=== PATIENT | female | born 1940 | race Caucasian/White ===

== ENCOUNTER 2021-02-09 02:42 | Outpatient (CLI) | payer MEDICARE, MEDICAID, SELFPAY ==
[2021-02-09 12:00] LABS: Source Nasal/Nares
[2021-02-09 15:27] LABS: COVID-19 PCR Negative (Negative)
== END 2021-02-09 02:43 | disposition home or self-care (01) ==
PROVIDERS: Visit Provider Ophthalmology
DX: Z20.822 Contact with and (suspected) exposure to COVID-19 (principal); Z01.818 Encounter for other preprocedural examination
CPT/HCPCS: 87635

== ENCOUNTER 2021-02-12 07:51 | Day surgery (SDC) | payer MEDICARE, MEDICAID, SELFPAY ==
[2021-02-12 08:44] VITALS: BP 200/86; PULSE 61; RESP 16; TEMP 36.4; O2SAT 100
[2021-02-12] MEDS: Tropicam./Phenyleph. (1/2.5%) 5 ML BTL OD ×3 (08:55→09:09)
--- NOTE | 2021-02-12 08:56 | W.ANESPRE ---
General Info Date of Service Date Performed: 02/12/21 Height: 5 ft 6 in Weight: 58.8 kg Body Mass Index (BMI): 20.9 Surgical Procedure: Operation Date: 02/12/21 10:40 Proposed Procedures Side Surgeon p Cataract Extraction with IOL Implant Right Jose Hudson MD Meds Allergies and Home Medications Allergies Allergy/AdvReac Type Severity Reaction Status Date / Time No Known Allergies Allergy Verified 02/12/21 08:41 Home Medication Medication Instructions Recorded acetaminophen [Mapap Arthritis 1,300 mg PO Q8H PRN 02/08/21 Pain] aspirin 81 mg PO DAILY 02/08/21 calcium carb and citrate-vitD3 1 tab PO DAILY 02/08/21 ferrous sulfate [FeroSul] 325 mg PO DAILY 02/08/21 metoprolol succinate 150 mg PO DAILY 02/08/21 pantoprazole 40 mg PO DAILY 02/08/21 Current Visit Medications: Current Medications Generic Name Dose Route Start Last Admin Trade Name Freq PRN Reason Stop Dose Admin Acetaminophen 1,000 mg 02/12/21 06:00 Acetaminophen 500 Mg Tab PO Q4H PRN PRN Miscellaneous Medication 0 ml 02/12/21 06:00 Prednisolone 1%, Moxifloxacin 0.5%, Nepafenac 0.1% 5ml Btl OD DIRECTED FARRAH Miscellaneous Medication 0 ml 02/12/21 06:00 02/12/21 08:55 Tropicam./Phenyleph. (1/2.5%) 5 Ml Btl OD 1 drp DIRECTED FARRAH Administration Tetracaine HCl 0 ml 02/12/21 06:00 Tetracaine 0.5% 4 Ml Btl OD DIRECTED FARRAH PFSH Active Problems Active Problems: Problem Status Onset Code Posterior subcapsular age-related cataract, right eye H25.041 Cortical cataract of right eye H26.9 Nuclear sclerotic cataract of right eye H25.11 Medical History Active Problem List Posterior subcapsular age-related cataract, right eye (Acute) Cortical cataract of right eye (Acute) Nuclear sclerotic cataract of right eye (Acute) Medical History Aortic stenosis, severe s/p TAVR 09/2019 Arthritis Essential hypertension Hip fracture, right History of left bundle branch block (LBBB) PER [facility] NOTE: LBBB INTERMITTENT, SINUS 90-100, NO INCREASE IN QRS DOLLOWING TAVR FROME BASELINE HLD (hyperlipidemia) NSTEMI (non-ST elevated myocardial infarction) 09/14/2019 @[facility] F/U WITH DR. CARVAJAL. LAST ECHO 09/2020 EF 61%, mild TR, mild biatrial enlargement PER [facility] NOTE. Osteoporosis Postoperative anemia due to acute blood loss Syncope 04/2017 in the etting of dehydration Upper GI bleed Weight loss Surgical History Surgical History H/O cardiac catheterization 09/17/19 R/T nstemi ON 09/14/19 History of hip replacement S/P XIMENA (total abdominal hysterectomy) S/P TAVR (transcatheter aortic valve replacement) Tobacco Smoking/Tobacco Use Status: Never Alcohol Alcohol Intake: never Substance Use Substance use: Never Substance use type: does not use Vital Signs and Lab Results Vital Signs Most Recent Vital Signs in EMR: Most Recent Vital Signs Temp Pulse Resp BP Pulse Ox 36.4 C L 61 16 200/86 H 100 02/12/21 08:44 02/12/21 08:44 02/12/21 08:44 02/12/21 08:44 02/12/21 08:44 Lab Results Blood Type / Crossmatch: No Data to Display Complete Blood Count: No Data to Display Complete Metabolic Panel: No Data to Display Liver Function Panel: No Data to Display Coagulation Panel: No Data to Display Cardiac Panel: No Data to Display Arterial Blood Gas: No Data to Display Venous Blood Gas: No Data to Display Pancreas Panel: No Data to Display Thyroid Panel: No Data to Display Infectious Disease: Coronavirus (COVID-19)(PCR) Negative (Negative) 02/09/21 10:58 02/09/21 Coronavirus 2019 Source Nasal/Nares 02/09/21 10:58 02/09/21 Blood Cultures: No Data to Display Toxicology Panel: No Data to Display Anesthesia Assessment and Plan Anesthesia History Personal History: No History of Anesthesia Complications Family History: No Family History of Anesthesia Complications Exercise Tolerance Exercise Tolerance: Metabolic Equivalents>4 Pertinent Negatives Pertinent Negatives: No Symptoms of GERD Cardiac & Pulmonary Exam Cardiac Exam: Normal S1/S2 Heart Sounds Pulmonary Exam: Clear Bilateral Breath Sounds Implantable Cardiac Device Does patient have a Pacemaker or an ICD?: No Airway Exam Known Difficult Airway: No Mallampati Class: 3 Mouth Opening: Narrow (< 3cm) Thyromental Distance: Greater than 3 cm Neck Range of Motion: Full ROM Neck Circumference: Normal Teeth Condition: Removable Dentures/Plates Upper and Removable Dentures/Plates Lower ASA Classification ASA Score: ASA 3 Emergency Case?: No NPO Status NPO Status: NPO Clears >2 hours, Solids >8 hours Anesthesia Plan Resuscitation Status: Full Code Anesthesia Technique: MAC Anesthesia Airway Planned: Natural Airway Monitors Used: Standard Monitors
[2021-02-12 09:18] VITALS: BMI 20.9
[2021-02-12] MEDS: Povidone-Iodine Ophth 30 ML BTL (09:34)
[2021-02-12] MEDS: Tetracaine 0.5% 4 ML BTL OD (09:34)
[2021-02-12] MEDS: Lidocaine 2% Jelly 6 ML SYR (09:35)
[2021-02-12] MEDS: Balanced Salt Soln.-PLUS 500 ML BAG (09:49)
[2021-02-12] MEDS: Duovisc Viscoelastic System EACH 1 EACH (09:50)
[2021-02-12 10:05] VITALS: BP 191/77; PULSE 63; RESP 16; TEMP 36.6; O2SAT 100
--- NOTE | 2021-02-12 10:06 | W.PM.DSUDISC ---
Discharge Plan Disposition Patient Disposition: HOME Condition: Good Discharge Details Attending Provider: Jose Hudson Primary Care Provider: Jackie Barron Home Meds and New Rx's Prescriptions: No Action metoprolol succinate 50 mg tablet extended release 24 hr 150 mg PO DAILY RF: 0 acetaminophen [Mapap Arthritis Pain] 650 mg tablet extended release 1,300 mg PO Q8H PRNRF: 0 pantoprazole 40 mg tablet,delayed release (DR/EC) 40 mg PO DAILY RF: 0 ferrous sulfate [FeroSul] 325 mg (65 mg iron) tablet 325 mg PO DAILY RF: 0 aspirin 81 mg tablet,chewable 81 mg PO DAILY RF: 0 calcium carb and citrate-vitD3 600 mg-12.5 mcg (500 unit) Tablet Extended Release 1 tab PO DAILY RF: 0 Discharge Instructions Stand Alone Forms: Post-op Topical Cataract, Gary Guzmaney (DSU) Discharge Orders Discharge Orders: Discharge Order (Routine); Ordered 02/12/21 Ordered By: Jose Hudson DS: Diagnosis Discharge Diagnosis (1) Nuclear sclerotic cataract of right eye: Status: Resolved (2) Cortical cataract of right eye: Status: Resolved (3) Posterior subcapsular age-related cataract, right eye: Status: Resolved
--- NOTE | 2021-02-12 10:07 | ROE_ITS ---
Date of service: 02/12/21 Time of Service: 10:07 Operative Note Operative Note DATE OF PROCEDURE: 02/12/21 PRE-OP DIAGNOSIS: Nuclear/cortical/posterior subcapsular cataract, right eye POST-OP DIAGNOSIS: same PROCEDURE: Cataract extraction using phacoemulsification with intraocular lens implant, right eye SURGEON: Jose Hudson ANESTHESIA TYPE: Local By Surgeon and MAC Refer to Anesthesia Record ESTIMATED BLOOD LOSS: 0 PATHOLOGY: none sent COMPLICATIONS: None Patient was transported to: same day Patient's condition: stable Implants: [employer] Tonny/NORM Tecnis [id number] Indications: Progressive visual loss due to cataract, right eye Procedure Description: CATARACT SURGERY OPERATIVE REPORT PREOPERATIVE DIAGNOSIS: 1. Nuclear/cortical/posterior subcapsular cataract, right eye POSTOPERATIVE DIAGNOSIS: Same OPERATION: 1. Cataract extraction using phacoemulsification with posterior chamber intraocular lens implant, right eye. IOL: IOL Casting Finisher/Model: [employer] Tonny / NORM Tecnis [id number] IOL Power: + 19.5 diopters IOL Serial Number: [id number] Optic Diameter: 6.0mm Haptic/Overall Diameter: 13.0mm PHACO INFO: Rafita Cypress Envirosystemsurion Vision System with OZil and Active Fluidics Cumulative Dispersed Energy (CDE): 7.60 seconds SURGEON: Jose Hudson MD, YING ANESTHESIA: Monitored Anesthesia Care (MAC), with local sub-tenon's anesthetic infiltration COMPLICATIONS: None SPECIMENS: None INDICATIONS FOR PROCEDURE: The patient is an 80-year-old lady with history of diminished visual acuity in her right eye secondary to the development of nuclear/cortical/posterior subcapsular cataract. The option of cataract surgery was offered to the patient and she wished to proceed. PROCEDURE: The correct surgical eye was identified and marked as the right eye and the pupil was dilated in the preoperative area using mydriatics and cycloplegics. The dilated pupil size was 8.0 mm. She elected to proceed without oral sedation.. The patient was brought to the operating room where cardiopulmonary monitoring was instituted and surgical time-out was performed, confirming the correct operative eye and IOL power. Topical anesthesia was administered and ophthalmic povidone-iodine 5% was instilled into the conjunctival fornices. Lidocaine gel was applied to the cornea and the sonya-ocular area was prepped with Betadine 10% solution and draped in the usual sterile fashion for intraocular surgery, including an apertu re drape. A Tegaderm transparent film dressing was cut in half and used to cover the lashes and lid margins. Care was taken to sequester the lashes and lid margins under the Tegaderm dressing. A lid speculum was placed between the lids of the operative eye and the Lena-George operating microscope was maneuvered into position. Angeline scissors were then used to make a conjunctival buttonhole approximately 6mm posterior to the limbus in the inferonasal quadrant. Blunt dissection was carried out to expose bare sclera, and a blunt-tipped sub-tenon?s anesthesia cannula was introduced and passed posteriorly along the globe where non- preserved plain lidocaine was injected into posterior sub-Tenon?s space. A sideport knife was used to make a paracentesis port inferotemporally. Intraocular phenylephrine/lidocaine was injected into the anterior chamber. The anterior chamber was filled with viscoelastic. A 2.4mm keratome knife was used to create a half-thickness groove at the limbus and then to construct a three- plane near-clear corneal tunnel extending 2.0mm into clear cornea superiortemporally. A flap was raised on the anterior capsule and capsulorhexis forceps were used to complete a continuous curvilinear capsulorhexis of 5.5 mm. Balanced salt solution was then used to perform cortical cleaving hydrodissection and nuclear hydrodelineation until the lens could be freely rotated within the capsular bag. The lens nucleus was then disassembled and removed within the capsular bag and iris plane using phacoemulsification. Residual cortical material was removed using the I/A handpiece. The posterior capsule was carefully polished to remove as much residual lens epithelial cells as safely possible. The capsular bag was then inflated and the anterior chamber deepened with viscoelastic. The lens implant described above was inserted into the capsular bag using the NORM [place] Injector. A Kuglen hook was used to dial the IOL into position. Residual viscoelastic was then removed first from posterior to the IOL, then from the anterior chamber using the I/A handpiece. The lens implant was noted to center nicely within the capsular bag. The incisions were stromally hydrated, and the anterior chamber was reformed using BSS. Then 0.5cc of moxifloxacin 1.0mg/ml were injected into the capsular bag and anterior chamber. The incisions were checked with a Weck spear and found to be secure. Several drops of ophthalmic povidone-iodine 5% were then applied to the eye followed by two drops of Imprimis combination prednisolone/moxifloxacin/nepafenac solution. The drapes were removed and a clear plastic protective eye shield was placed over the eye. The patient was then returned to Same Day Surgery in stable condition.
--- NOTE | 2021-02-12 10:22 | W.ANESPOSTOP ---
Postoperative Evaluation Date, Time and Location Date Performed: 02/12/21 Time Performed: 10:07 Patient Location: Day Surgery Unit Vital Signs Most Recent Imported Vital Signs: Most Recent Vital Signs Temp Pulse Resp BP Pulse Ox 36.6 C 63 16 191/77 H 100 02/12/21 10:05 02/12/21 10:05 02/12/21 10:05 02/12/21 10:05 02/12/21 10:05 Pain Score Most Recent Pain Score: Most Recent Pain Score Pain Level 0 02/12/21 10:05 Assessment Mental Status: Awake (Alert & Oriented to Patient Baseline) Airway and Respiratory Function: Patent airway with normal (patient baseline) respiratory exam Cardiovascular Function: Hemodynamically Stable Hydration Status: Adequately Hydrated Nausea & Vomiting: No Nausea or Vomiting Pain: Pt. Denies Any Pain Peripheral Nerve Block: Patient did not receive a nerve block
== END 2021-02-12 10:35 | disposition home or self-care (01) ==
PROVIDERS: PCP Legal Medicine; Visit Provider Ophthalmology
PROC: (CPT 66984; principal; 2021-02-12 10:30)
DX: H25.041 Posterior subcapsular polar age-related cataract, right eye (principal); I10 Essential (primary) hypertension
CPT/HCPCS: 66984; V2632